=== PATIENT | female | born 1965 | race Two or more races ===

== ENCOUNTER 2020-07-10 15:44 | Outpatient (CLI) | payer OTHER | END 2020-07-10 16:01 | disposition home or self-care (01) | LOC: TOM 15:44 | DX: N20.0 Calculus of kidney (principal) ==

== ENCOUNTER → 2020-07-10 16:18 | Outpatient (CLI) | payer OTHER | END | disposition home or self-care (01) | LOC: LAB 16:18 | DX: N39.0 Urinary tract infection, site not specified (principal) ==

== ENCOUNTER 2021-06-19 10:25 | Emergency (ER) | payer OTHER ==
[~2021-06-19] VITALS: Ht 152.4 cm; Wt 69.9 kg
[2021-06-19] MEDS ORDERED: PROGESTERO50 MG/1 M1 IM (11:09)
[2021-06-19] MEDS ORDERED: DITROPAN XL10 MG (11:11)
[2021-06-19] MEDS ORDERED: DICY20TA PO (11:12)
[2021-06-19] MEDS ORDERED: TYLENOL325 M1 PO (11:12)
== END 2021-06-19 20:03 | disposition home or self-care (01) ==
LOC: ER 10:25
DX: N20.0 Calculus of kidney (principal); R10.31 Right lower quadrant pain